=== PATIENT | female | born 1975 | race American Indian/Alaskan Native ===

== ENCOUNTER 2019-04-25 13:08 | Emergency (ER) | payer SELFPAY ==
[2019-04-25 13:28] VITALS: BP 113/79
--- NOTE | 2019-04-25 13:35 | Emergency Department Report ---
Chief Complaint: Dental/Oral Stated Complaint: TOOTHACHE Time Seen by Provider: 04/25/19 13:27 - HPI History of Present Illness: This is a 44 y.o. F. that presents to the ER with right sided dental pain for several days. Reports going to see a dentist as a walk in and told to take Tylenol which is no longer controlling pain. Reports increased gingival swelling and pain. Denies difficulty swallowing, drooling, fever, chills, headache, nausea, vomiting, chest pain or SOB. Denies any other complaints. - ROS Review of Systems: HEENT: dental pain - Exam Vital Signs: Vital Signs 04/25/19 13:24 Temperature 98.6 F Pulse Rate 78 Respiratory 18 Rate Blood Pressure 113/79 O2 Sat by Pulse 97 Oximetry MSE screening note: Focused history and physical exam performed. Due to findings the following was ordered: ED Medical Decision Making - Medical Decision Making This is a 44-year-old male that presents with dental pain for 2-3 days. Patient is stable and was examined by me. Tooth #2, dark dental caries center tooth, TTP, no gingival swelling, or facial swelling. No signs of cellulitis or abscess. This is a non-emergent complaint. Registration discussed copayment and patient refused payment. A handout with emergency dental clinics was provided. Instructed to return to the ER if symptoms worsen. At time of discharge, the patient does not seem toxic or ill in appearance. No acute signs of distress noted. Patient agrees to discharge treatment plan of care. No fu rther questions noted by the patient. [place] [facility] [place] MED SCREENING EXAM-LEFT Condition: Stable Referrals: PRIMARY CARE, [Primary Care Provider] - 3-5 Days
== END 2019-04-25 14:00 | disposition left against medical advice (07) ==
LOC: ED 13:08
DX: K08.89 Other specified disorders of teeth and supporting structures (principal)
CPT/HCPCS: 99281